=== PATIENT | female | born 1950 | race Native Hawaiian/Other Pacific Islander ===

== ENCOUNTER 2016-04-08 17:43 | Observation (INO) | payer SELFPAY ==
[2016-04-08] VITALS (7 sets, daily range): BP systolic 131–193; BP diastolic 68–103; PULSE 60–75; RESP 16–20; O2SAT 95–97
[~2016-04-08] VITALS: Ht 165.1 cm; Wt 76.5 kg
--- NOTE | 2016-04-08 18:27 | RADHPO ---
EXAM DATE/TIME: 04/08/2016 18:17 [facility] COMPARISON: No previous studies available for comparison. INDICATIONS : Chest pain, shortness of breath for 1 week MEDICAL HISTORY : None. SURGICAL HISTORY : None. ENCOUNTER: Initial ACUITY: 1 day PAIN SCORE: 6/10 LOCATION: Bilateral chest FINDINGS: A single view of the chest demonstrates the lungs to be symmetrically aerated without evidence of mas s, infiltrate or effusion. The cardiomediastinal contours are unremarkable. Osseous structures are intact. CONCLUSION: No acute disease. Dick Downs MD on April 08, 2016 at 18:25 Board Certified Radiologist. This report was verified electronically.
[2016-04-08 18:35] LABS: AUTOMATED NEUTROPHIL # 5.3 TH/MM3 (1.8-7.7); BASOPHIL # 0.1 TH/MM3 (0-0.2); BASOPHIL % 0.7 % (0.0-2.0); CHLORIDE 103 MEQ/L (98-107); EOSINOPHIL # 0.2 TH/MM3 (0-0.4); EOSINOPHIL % 1.3 % (0.0-4.0); HEMATOCRIT 36.7 % (35.0-46.0); LYMPH % 45.4 % (9.0-44.0); LYMPHOCYTE # 5.3 TH/MM3 (1.0-4.8); MEAN CELL VOLUME 88.4 FL (80.0-100.0); MEAN CORPUSCULAR HEMOGLOBIN 29.5 PG (27.0-34.0); MEAN CORPUSCULAR HGB CONC 33.4 % (32.0-36.0); MONO % 6.2 % (0.0-8.0); NEUT % 46.4 % (16.0-70.0); PLATELET COUNT 272 TH/MM3 (150-450); POTASSIUM 4.1 MEQ/L (3.5-5.1); RED BLOOD COUNT 4.15 MIL/MM3 (4.00-5.30); RED CELL DISTRIBUTION WIDTH 13.7 % (11.6-17.2); SODIUM (NA) 139 MEQ/L (136-145); WHITE BLOOD COUNT 11.6 TH/MM3 (4.0-11.0)
[2016-04-08 18:40] LABS: ANION GAP 10 MEQ/L (5-15); BICARBONATE 26.1 MEQ/L (21.0-32.0); BLOOD UREA NITROGEN 15 MG/DL (7-18)
[2016-04-08 18:43] LABS: GLOMERULAR FILTRATION RATE 59 ML/MIN (>89)
[2016-04-08] MEDS ORDERED: LYRI150C PO (18:44)
[2016-04-08] MEDS ORDERED: BENI40TA5 PO (18:44)
[2016-04-08] MEDS ORDERED: ASPI1TAB69 PO (18:44)
[2016-04-08] MEDS ORDERED: ROSU10 PO (18:44)
[2016-04-08] MEDS ORDERED: GLUC2.5T2 PO (18:44)
[2016-04-08] MEDS ORDERED: METO50TA11 PO (18:44)
[2016-04-08] MEDS ORDERED: OMEP20TA PO (18:44)
[2016-04-08 18:45] LABS: HEMO FLAGS AUTO DIFF
[2016-04-08 18:51] LABS: CREATINE KINASE 99 U/L (26-192)
[2016-04-08 19:06] LABS: NEUTROPHIL # MANUAL DIFF 5.6 TH/MM3 (1.8-7.7); PLATELET ESTIMATE SMEAR NORMAL (NORMAL); PLATELET MORPHOLOGY NORMAL (NORMAL); POLYS (SEG NEUTROPHILS) 48 % (16-70); SCAN/DIFF FINAL DIFF MANUAL; WBC DIFF SAMPLE 100
--- NOTE | 2016-04-08 19:34 | PD ---
HPI Chief Complaint: Chest Pain Time Seen by Provider: 19:25 Travel History International Travel<30 days: No Contact w/Intl Traveler<30days: [place] Country Traveled to: [place] Traveled to known affect area: No History of Present Illness HPI The patient is a 66-year-old female with no known history of heart disease who complains of a sharp, pleuritic chest pain in the mid and lower sternal area lasting for 30 seconds at a time and associated with coughing or deep breathing for one week. She has never had a stress test. She does have a history of hypertension, diabetes, elevated cholesterol. She denies any fever or cough. She does not smoke. She denies any shortness of breath or diaphoresis but does have nausea. She does not speak East [place]orese but comes with her son who interprets Kiswahili. She lives in [place] and has no local primary care physician. She does have radiation throughout the left arm. PFSH Past Medical History High Cholesterol: Yes Diabetes: Yes Patient Takes Glucophage: No Hypertension: Yes Influenza Vaccination: Yes Menopausal: Yes Past Surgical History Surgical History: No Previous Surgery Social History Alcohol Use: No Tobacco Use: No Substance Use: No Allergies-Medications (Allergen,Severity, Reaction): Coded Allergies: No Known Allergies (Unverified , 04/08/16) Reported Meds & Prescriptions Reported Meds & Active Scripts Active Reported Omeprazole 20 Mg Tab 20 Mg PO DAILY Aspirin 81 Mg Tabdr 81 Mg PO DAILY Glucovance (Glyburide-Metformin) 2.5-500 Mg Tab 1 Tab PO DAILY Metoprolol Succinate ER 24 HR (Metoprolol Succinate) 50 Mg Tab 50 Mg PO DAILY Benicar Hct (Olmesartan-Hydrochlorothiazide) 40-12.5 mg Tab 1 Tab PO BID Crestor (Rosuvastatin Calcium) 10 Mg Tab 10 Mg PO DAILY Lyrica (Pregabalin) 150 Mg Cap 150 Mg PO DAILY Review of Systems Except as stated in HPI: all other systems reviewed are Neg Physical Exam Narrative GENERAL: The patient is alert, oriented 3 in minimal apparent distress. SKIN: Warm and dry. HEAD: Atraumatic. Normocephalic. EYES: Pupils equal and round. No scleral icterus. No injection or drainage. ENT: No nasal bleeding or discharge. Mucous membranes pink and moist. NECK: Trachea midline. No JVD. CARDIOVASCULAR: Regular rate and rhythm. No murmur appreciated. RESPIRATORY: No accessory muscle use. Clear to auscultation. Breath sounds equal bilaterally. GASTROINTESTINAL: Abdomen soft, non-tender, nondistended. Hepatic and splenic margins not palpable. MUSCULOSKELETAL: No obvious deformities. No clubbing. No cyanosis. No edema. NEUROLOGICAL: Awake and alert. No obvious cranial nerve deficits. Motor grossly within normal limits. Normal speech. PSYCHIATRIC: Appropriate mood and affect; insight and judgment normal. Data Data Last Documented VS Vital Signs Date Time Temp Pulse Resp B/P Pulse Ox O2 Delivery O2 Flow Rate FiO2 04/08/16 19:14 Nasal Cannula 2 04/08/16 19:14 68 18 146/74 97 Orders Electrocardiogram (04/08/16 18:11) Complete Blood Count With Diff (04/08/16 18:11) Basic Metabolic Panel (Bmp) (04/08/16 18:11) Ckmb (Isoenzyme) Profile (04/08/16 18:11) Troponin I (04/08/16 18:11) Chest, Single Ap (04/08/16 18:11) Iv Access Insert/Monitor (04/08/16 18:11) Ecg Monitoring (04/08/16 18:11) Oxygen Administration (04/08/16 18:11) Oximetry (04/08/16 18:11) Place In Observation (04/08/16 ) Vital Signs (Adult) Q4H (04/08/16 19:36) Activity Oob With Assistance (04/08/16 19:36) ^ Professor Of Finance / Telemetry .CONTINUOUS (04/08/16 19:36) Diet Heart Healthy (04/09/16 Breakfast) Sodium Chloride 0.9% Flush (Ns Flush) (04/08/16 19:45) Sodium Chloride 0.9% Flush (Ns Flush) (04/08/16 21:00) Acetaminophen (Tylenol) (04/08/16 19:45) Ondansetron Inj (Zofran Inj) (04/08/16 19:45) Prochlorperazine Supp (Compazine Supp) (04/08/16 19:45) Bisacodyl Supp (Dulcolax Supp) (04/08/16 19:45) Sennosides (Senokot) (04/08/16 19:45) Basic Metabolic Panel (Bmp) (04/09/16 06:00) Complete Blood Count With Diff (04/09/16 06:00) Troponin I (04/08/16 19:36) Troponin I (04/09/16 01:36) Electrocardiogram (04/08/16 19:45) Resp Oxygen John C Titrat 1-4 L (04/08/16 ) Pt Request For Service (04/08/16 19:36) Case Management Consult (04/08/16 19:36) Scd Bilateral/Knee High ALFIE.BID (04/08/16 19:36) Michele Bilateral/Knee High ALFIE.QSHIFT (04/08/16 19:36) Admit Order (Ed Use Only) (04/08/16 19:39) Labs Laboratory Tests Test 04/08/16 18:15 White Blood Count 11.6 TH/MM3 Red Blood Count 4.15 MIL/MM3 Hemoglobin 12.2 GM/DL Hematocrit 36.7 % Mean Corpuscular Volume 88.4 FL Mean Corpuscular Hemoglobin 29.5 PG Mean Corpuscular Hemoglobin 33.4 % Concent Red Cell Distribution Width 13.7 % Platelet Count 272 TH/MM3 Mean Platelet Volume 8.8 FL Neutrophils (%) (Auto) 46.4 % Lymphocytes (%) (Auto) 45.4 % Monocytes (%) (Auto) 6.2 % Eosinophils (%) (Auto) 1.3 % Basophils (%) (Auto) 0.7 % Neutrophils # (Auto) 5.3 TH/MM3 Lymphocytes # (Auto) 5.3 TH/MM3 Monocytes # (Auto) 0.7 TH/MM3 Eosinophils # (Auto) 0.2 TH/MM3 Basophils # (Auto) 0.1 TH/MM3 CBC Comment AUTO DIFF Differential Total Cells 100 Counted Neutrophils % (Manual) 48 % Lymphocytes % 46 % Monocytes % 6 % Neutrophils # (Manual) 5.6 TH/MM3 Differential Comment FINAL DIFF MANUAL Platelet Estimate NORMAL Platelet Morphology Comment NORMAL Red Cell Morphology Comment NORMAL Sodium Level 139 MEQ/L Potassium Level 4.1 MEQ/L Chloride Level 103 MEQ/L Carbon Dioxide Level 26.1 MEQ/L Anion Gap 10 MEQ/L Blood Urea Nitrogen 15 MG/DL Creatinine 0.95 MG/DL Estimat Glomerular Filtration 59 ML/MIN Rate Random Glucose 89 MG/DL Calcium Level 9.3 MG/DL Total Creatine Kinase 99 U/L Troponin I LESS THAN 0.02 NG/ML MDM Medical Decision Making Medical Screen Exam Complete: Yes Emergency Medical Condition: Yes Medical Record Reviewed: Yes Interpretation(s) The chest x-ray shows no acute disease. The cardiac enzymes are normal and the basic metabolic profile is normal except for a GFR of 59. The CBC shows white count 11,600 but is otherwise unremarkable. EKG shows sinus rhythm with a rate of 79 in no acute change. Differential Diagnosis Atypical chest pain, chest wall pain, acute coronary syndrome, pneumothorax, pneumonia, pleuritic pain, gastrointestinal pain, esophageal pain, chest pain etiology undetermined Narrative Course The patient has multiple risk factors and has not had a stress test. Even though the pain has atypical qualities, the patient's risk factors and her nausea and radiation out the left arm make her pain concerning. The patient will be put in the chest pain center. Physician Communication Physician Communication I discussed the patient with Dr. Queen, the patient will be admitted to [facility]. Diagnosis Primary Impression: Chest pain of unknown etiology Admitting Information Admitting Physician Requests: Observation Valdemar Skinner MD Apr 08, 2016 19:34
[2016-04-08] MEDS ORDERED: SODIUM CHLORIDE 0.9% FLUSH 5 ML FLUSH FLUSH PRN (19:45)
[2016-04-08] MEDS ORDERED: SENNOSIDES 8.6 MG TAB PO PRN (19:45)
[2016-04-08] MEDS ORDERED: BISACODYL 10 MG SUPP PR PRN (19:45)
[2016-04-08] MEDS ORDERED: ONDANSETRON HCL 4 MG/2 ML VIAL IVP PRN (19:45)
[2016-04-08] MEDS ORDERED: PROCHLORPERAZINE 25 MG SUPP PR PRN (19:45)
[2016-04-08] MEDS ORDERED: ACETAMINOPHEN 325 MG TAB PO PRN (19:45)
[2016-04-09] VITALS (7 sets, daily range): BP systolic 105–168; BP diastolic 59–86; PULSE 66–80; RESP 16–20; TEMP 97.3–98.1; O2SAT 95–96
[2016-04-09] MEDS: SODIUM CHLORIDE 0.9% FLUSH 5 ML FLUSH FLUSH SCH ×2 (02:06→10:45)
--- NOTE | 2016-04-09 05:25 | EKG ---
Date Performed: 04/08/2016 Time Performed: 19:50:42 PTAGE: 66 years EKG: Sinus rhythm . Normal ECG NO SIGNIFICANT CHANGE FROM PRIOR ELECTROCARDIOGRAM. PREVIOUS TRACING : 04/08/2016 17.47 DOCTOR: Mars Fisher Interpretating Date/Time 04/09/2016 05:24:43
--- NOTE | 2016-04-09 05:35 | EKG ---
Date Performed: 04/08/2016 Time Performed: 17:47:48 PTAGE: 66 years EKG: Sinus rhythm Inferior/lateral ST-T changes are nonspecific Borderline ECG NO PREVIOUS TRACING DOCTOR: Mars Fisher Interpretating Date/Time 04/09/2016 05:32:43
[2016-04-09] MEDS ORDERED: DEXTROSE 50% IN WATER 50 ML VIAL(D50) IV PUSH PRN (05:45)
[2016-04-09] MEDS ORDERED: GLUCAGON 1 MG/ML VIAL OTHER PRN (05:45)
[2016-04-09 06:13] LABS: AUTOMATED NEUTROPHIL # 3.6 TH/MM3 (1.8-7.7); BASOPHIL # 0.1 TH/MM3 (0-0.2); BASOPHIL % 0.9 % (0.0-2.0); EOSINOPHIL # 0.1 TH/MM3 (0-0.4); EOSINOPHIL % 0.8 % (0.0-4.0); HEMATOCRIT 34.2 % (35.0-46.0); HEMO FLAGS DIFF FINAL; LYMPH % 44.8 % (9.0-44.0); LYMPHOCYTE # 3.5 TH/MM3 (1.0-4.8); MEAN CELL VOLUME 87.7 FL (80.0-100.0); MEAN CORPUSCULAR HEMOGLOBIN 30.6 PG (27.0-34.0); MEAN CORPUSCULAR HGB CONC 34.8 % (32.0-36.0); MONO % 6.9 % (0.0-8.0); NEUT % 46.6 % (16.0-70.0); PLATELET COUNT 292 TH/MM3 (150-450); RED CELL DISTRIBUTION WIDTH 13.3 % (11.6-17.2); WHITE BLOOD COUNT 7.8 TH/MM3 (4.0-11.0)
[2016-04-09 06:16] LABS: POTASSIUM 3.7 MEQ/L (3.5-5.1)
[2016-04-09 06:19] LABS: BICARBONATE 25.7 MEQ/L (21.0-32.0)
[2016-04-09] MEDS ORDERED: INSULIN ASPART SUPPLEMENTAL SCALE SQ SCH (07:00)
[2016-04-09] MEDS ORDERED: NON-FORMULARY DRUG (Olmesartan-Hydrochlorothiazide (Benicar Hct) 1 TAB) PO SCH (09:00)
[2016-04-09] MEDS ORDERED: ATORVASTATIN 20 MG TAB PO SCH (09:00)
[2016-04-09] MEDS ORDERED: PANTOPRAZOLE SOD 20 MG DELAYED RELEASE TAB PO SCH (09:00)
[2016-04-09] MEDS ORDERED: PREGABALIN 75 MG CAP PO SCH (09:00)
[2016-04-09] MEDS ORDERED: ASPIRIN EC 81 MG TABEC PO SCH (09:00)
[2016-04-09] MEDS ORDERED: HYDROCHLOROTHIAZIDE 12.5 MG CAP PO SCH ×2 (09:00)
[2016-04-09] MEDS ORDERED: LOSARTAN 50 MG TAB PO SCH ×2 (09:00)
--- NOTE | 2016-04-09 10:09 | HHI.HP ---
[facility] Service [facility] Primary Care Physician No Primary Care Physician Admission Diagnosis chest pain etiology undetermined Diagnoses: (1) Chest pain Diagnosis: Principal (2) Hypertension Diagnosis: Secondary (3) Hyperlipidemia Diagnosis: Secondary (4) Diabetes Diagnosis: Secondary Chief Complaint: Chest pain Travel History International Travel<30 Days: No Contact w/Intl Traveler <30 Da: [place] of Country Traveled to: [place] Traveled to Known Affected Are: No History of Present Illness 66-year-old [place] female with known history of hypertension, hyperlipidemia, diabetes, herniated disc the lumbar spine who presented to hospital because of chest discomfort. Information translated by daughter at bedside. The patient does not speak any Mongolian. Patient states that she's been experiencing this chest discomfort for over a month. Has been intermittent mainly whenever her blood pressure is elevated. She states the pain is located in central part of chest radiating into both shoulders. She explains it as a pain pricking sensation over her chest. She does get episodes of nausea and intermittent vomiting. She does get shortness of breath. She indicates that the pain can happen at rest or during exertion. Patient indicates that the pain last for a couple seconds at a time and self resolves. She has not followed up with her primary doctor concerning the symptoms because she is from [place] and she has been here since August. She plans on flying back to [place] on Wednesday. Review of Systems Constitutional: DENIES: Diaphoretic episodes, Fatigue, Fever, Weight gain, Weight loss, Chills, Dizziness, Change in appetite, Night Sweats Eyes: DENIES: Blurred vision, Diplopia, Eye inflammation, Eye pain, Vision loss , Double Vision Ears, nose, mouth, throat: DENIES: Vertigo, Nasal discharge, Throat pain, Ear Pain, Running Nose, Sinus Pain Respiratory: COMPLAINS OF: Shortness of breath, DENIES: Apneas, Cough, Snoring , Wheezing, Hemoptysis, Sputum production Cardiovascular: COMPLAINS OF: Chest pain, DENIES: Palpitations, Syncope, Dyspnea on Exertion, Lower Extremity Edema, Orthopnea Gastrointestinal: COMPLAINS OF: Nausea, Vomiting, DENIES: Abdominal pain, Black stools, Bloody stools, Constipation, Diarrhea, Difficulty Swallowing, Anorexia Neurologic: DENIES: Abnormal gait, Headache, Localized weakness, Paresthesias, Seizures, Speech Problems, Tremor, Poor Balance Psychiatric: DENIES: Anxiety, Confusion, Mood changes, Depression Past Family Social History Past Medical History Hypertension Hyperlipidemia Diabetes Herniated disc of the lumbar spine Past Surgical History Tonsillectomy Reported Medications Reported Meds & Active Scripts Active Reported Omeprazole 20 Mg Tab 20 Mg PO DAILY Aspirin 81 Mg Tabdr 81 Mg PO DAILY Glucovance (Glyburide-Metformin) 2.5-500 Mg Tab 1 Tab PO DAILY Metoprolol Succinate ER 24 HR (Metoprolol Succinate) 50 Mg Tab 50 Mg PO DAILY Benicar Hct (Olmesartan-Hydrochlorothiazide) 40-12.5 mg Tab 1 Tab PO BID Crestor (Rosuvastatin Calcium) 10 Mg Tab 10 Mg PO DAILY Lyrica (Pregabalin) 150 Mg Cap 150 Mg PO DAILY Allergies: Coded Allergies: No Known Allergies (Unverified , 04/08/16) Family History Reviewed and rather unremarkable. Social History Denies any tobacco, alcohol or illicit drugs Physical Exam Vital Signs Vital Signs Date Time Temp Pulse Resp B/P Pulse Ox O2 Delivery O2 Flow Rate FiO2 04/09/16 09:04 97.3 74 18 168/86 95 04/09/16 04:00 97.7 66 18 105/69 95 04/09/16 02:15 98.1 78 20 164/86 96 04/09/16 02:06 77 04/09/16 01:48 62 17 141/75 98 04/09/16 00:05 67 16 119/59 96 Room Air 04/08/16 23:00 95 21 04/08/16 21:55 Room Air 04/08/16 21:01 60 17 131/68 97 Room Air 04/08/16 20:00 68 16 146/72 96 Room Air 04/08/16 19:14 Nasal Cannula 2 04/08/16 19:14 68 18 146/74 97 Nasal Cannula 04/08/16 18:20 74 18 163/74 96 Nasal Cannula 04/08/16 18:18 95 Nasal Cannula 3 04/08/16 18:18 97 Nasal Cannula 3 04/08/16 18:04 73 Nasal Cannula 3 04/08/16 18:00 75 20 193/103 95 Physical Exam GENERAL: Well-developed, well-nourished, in no acute distress. alert and orientated HEENT: Head is normocephalic without any lesions or masses noted. Facial features are symmetric. Eyes: Pupils equal round reactive to light. Extraocular muscles are intact. Conjunctivae were clear. Oropharyngeal: Pharynx without any erythema edema. Tongue is midline without deviation. Buccal mucosa is moist without any masses or lesions NECK: Supple without any masses. Trachea midline no deviation. No JVD, no bruits are appreciated CARDIAC: Regular rhythm, regular rate. S1/S2 are heard. No murmurs gallops or rubs. LUNGS: Clear to auscultation bilaterally. No wheeze, rhonchi or rales. No use of accessory muscles on inspiration or expiration. ABDOMEN: Soft, nontender. Nondistended. Bowel sounds heard in all 4 quadrants. No organomegaly or masses. Negative rebound, negative guarding EXTREMITIES: No edema, pulses are equal bilaterally. No cyanosis or clubbing NEUROLOGY: Mood and affect appear appropriate. Cranial nerves II through XII grossly intact. Muscle strength 5/5 in upper and lower extremities bilaterally. Deep tendon reflexes are 2+ in upper and lower extremities bilaterally. Laboratory Laboratory Tests Test 04/08/16 04/08/16 04/09/16 04/09/16 18:15 20:20 01:20 05:45 White Blood Count 11.6 7.8 Red Blood Count 4.15 3.90 Hemoglobin 12.2 11.9 Hematocrit 36.7 34.2 Mean Corpuscular Volume 88.4 87.7 Mean Corpuscular Hemoglobin 29.5 30.6 Mean Corpuscular Hemoglobin 33.4 34.8 Concent Red Cell Distribution Width 13.7 13.3 Platelet Count 272 292 Mean Platelet Volume 8.8 7.9 Neutrophils (%) (Auto) 46.4 46.6 Lymphocytes (%) (Auto) 45.4 44.8 Monocytes (%) (Auto) 6.2 6.9 Eosinophils (%) (Auto) 1.3 0.8 Basophils (%) (Auto) 0.7 0.9 Neutrophils # (Auto) 5.3 3.6 Lymphocytes # (Auto) 5.3 3.5 Monocytes # (Auto) 0.7 0.5 Eosinophils # (Auto) 0.2 0.1 Basophils # (Auto) 0.1 0.1 CBC Comment AUTO DIFF DIFF FINAL Differential Total Cells 100 Counted Neutrophils % (Manual) 48 Lymphocytes % 46 Monocytes % 6 Neutrophils # (Manual) 5.6 Differential Comment FINAL DIFF MANUAL Platelet Estimate NORMAL Platelet Morphology Comment NORMAL Red Cell Morphology Comment NORMAL Sodium Level 139 143 Potassium Level 4.1 3.7 Chloride Level 103 106 Carbon Dioxide Level 26.1 25.7 Anion Gap 10 11 Blood Urea Nitrogen 15 12 Creatinine 0.95 0.83 Estimat Glomerular Filtration 59 69 Rate Random Glucose 89 119 Calcium Level 9.3 9.3 Total Creatine Kinase 99 Troponin I LESS THAN 0.02 LESS THAN 0.02 LESS THAN 0.02 Result Diagram: 04/09/16 0545 04/09/16 0545 Imaging Last Impressions Chest X-Ray 04/08/16 1811 Signed Impressions: Service Date/Time: Friday, April 08, 2016 18:17 - CONCLUSION: No acute disease. Dick Downs MD Assessment and Plan Assessment and Plan Chest pain, Patient with increased risk factors to include age, female, hypertension, hyperlipidemia, diabetes Serial cardiac enzymes were performed and reviewed which were negative Serial EKGs were performed and reviewed which showed normal sinus rhythm without any changes Patient has been ruled out for any acute coronary event Nuclear stress test was negative for any ischemia Patient unable to exercise stress test due to limits. Your and herniated disc of the lumbar spine Continue aspirin, beta german Hypertension, uncontrolledlabile Resume home medications Hyperlipidemia Statin continued DVT prevention Sequential compression devices Written by Alex Skinner PA-C, acting as scribe for Dr. Hills on 04/09/16 at 1500. The documentation accurately reflects the work and decisions performed face-to- face by Dr. Hills on 04/09/16 at 1500. Discharge disposition Discharge home in stable condition Activity: Ad chelsea. Diet: Healthy heart diet Medications per medication reconciliation Follow-up primary medical doctor in one week Problem Qualifiers (1) Chest pain: Qualified Code: R07.9 - Chest pain, unspecified type (2) Hypertension: Qualified Code: I15.9 - Secondary hypertension (3) Hyperlipidemia: Qualified Code: E78.5 - Hyperlipidemia, unspecified hyperlipidemia type (4) Diabetes: Qualified Code: E11.8 - Type 2 diabetes mellitus with complication, without long-term current use of insulin Alex Skinner Apr 09, 2016 10:09 Alex Skinner Apr 09, 2016 10:09
[2016-04-09] MEDS ORDERED: METOPROLOL SUCCINATE 50 MG EXTENDED RELEASE TAB PO SCH (10:15)
[2016-04-09] MEDS ORDERED: REGADENOSON INJ 0.4 MG/5 ML SYR IV ONE (12:07)
--- NOTE | 2016-04-09 14:00 | RADHPO ---
EXAM DATE/TIME: 04/09/2016 12:39 [facility] COMPARISON: No previous studies available for comparison. INDICATIONS : Substernal chest pain with dyspnea and coughing for 1 week. Angina. DOSE: 26.1 mCi Tc99m Myoview at stress. 8.8 mCi Tc99m Myoview at rest. 0.4 mg Lexiscan STRESS SYMPTOMS: Headache. EJECTION FRACTION: > 70% MEDICAL HISTORY : Hypercholesterolemia. Hypertension. Diabetes mellitus type 2. SURGICAL HISTORY : None. ENCOUNTER: Initial ACUITY: 1 week PAIN SCALE: 6/10 LOCATION: Substernal chest TECHNIQUE: The patient underwent pharmacologic stress with infusion of prescribed dose. Continuous ECG tracing was monitored during stress. Gated SPECT imaging was performed after stress and conventional SPECT i maging was performed at rest. The examination was performed on a SPECT/CT scanner, both attenuation and non-corrected datasets were reviewed. FINDINGS: DISTRIBUTION: The maximum perfused segment at stress is in the septal wall. PERFUSION STUDY: The pattern of perfusion at stress is within normal limits. GATED STUDY: There is intact wall motion and thickening without hypokinetic or dyskinetic segments. CONCLUSION: 1. No reversible perfusion defect to suggest stress-induced myocardial ischemia. RISK CATEGORY: Low (<1% Annual Mortality Rate) Jayce Denton MD on April 09, 2016 at 13:57 Board Certified Radiologist. This report was verified electronically.
--- NOTE | 2016-04-09 15:18 | HHI.DCPOC ---
Discharge Care Plan Diagnosis: (1) Chest pain Goals to Promote Your Health * To prevent worsening of your condition and complications * To maintain your health at the optimal level Directions to Meet Your Goals Take your medications as prescribed Follow your dietary instruction Follow activity as directed Keep your appointments as scheduled Take your immunizations and boosters as scheduled If your symptoms worsen call your PCP, if no PCP go to Urgent Care Center or Emergency Room Smoking is Dangerous to Your Health. Avoid second hand smoke Call the 24-hour hour crisis hotline for domestic abuse at Alex Skinner Apr 09, 2016 15:18
[2016-04-09] MEDS ORDERED: CLON0.1T PO (15:35)
[2016-04-09] MEDS ORDERED: METO50TA11 PO (15:46)
--- NOTE | 2016-04-10 14:38 | TR ---
Date Performed: 04/09/2016 Time Performed: 12:47:25 DOCTOR: Josephine Pettit DRUG LIST: CLINICAL HISTORY: REASON FOR TEST: Chest pain. REASON FOR ENDING: OBSERVATION: CONCLUSION: Lexiscan stress test was performed under standard four minute protocol. Radionuclid e was injected one minute prior to ending the test. No electrocardiographic abormalities were present to suggest ischemia. Nuclear imaging and interpretation are pending. COMMENTS:
== END 2016-04-09 16:10 | disposition home or self-care (01) ==
LOC: PHED 17:43 → PHEDA 19:40 → PHEDH 23:40 → PH3B 04-09 01:44
PROVIDERS: ADMIT Family Medicine; ATTEND Family Medicine
DX: R07.89 Other chest pain (principal); I10 Essential (primary) hypertension; R94.31 Abnormal electrocardiogram [ECG] [EKG]; E78.5 Hyperlipidemia, unspecified; E11.9 Type 2 diabetes mellitus without complications; Z79.84 Long term (current) use of oral hypoglycemic drugs
CPT/HCPCS: 71010; 78452; 80048; 82550; 82948; 84484; 85007; 85025; 85027; 93005; 93017; 99285; A9502; G0378; J2785